=== PATIENT | female | born 1955 | race Caucasian/White ===

== ENCOUNTER 2021-05-06 16:12 | Emergency (ER) | payer MEDICARE ==
[~2021-05-06] VITALS: Ht 170.2 cm; Wt 122.8 kg
[2021-05-06] MEDS ORDERED: LEVOTHYROXINE88 MC1 PO (17:04)
[2021-05-06] MEDS ORDERED: DULOXETINE HCL20 MG PO (17:05)
[2021-05-06] MEDS ORDERED: TRAZODONE HCL50 MG PO (17:05)
[2021-05-06] MEDS ORDERED: OMEPRAZOLE20 MG PO (17:05)
[2021-05-06] MEDS ORDERED: LEXAPRO10 MG PO (17:06)
[2021-05-06] MEDS ORDERED: ASPIRIN81 MG PO (17:07)
[2021-05-06] MEDS ORDERED: ZYPREXA5 MG PO (17:07)
[2021-05-06] MEDS ORDERED: HYDROCODON-ACE1 EA10 PO (20:40)
== END 2021-05-06 20:55 | disposition home or self-care (01) ==
LOC: ED 16:12
DX: R10.13 Epigastric pain (principal); R91.1 Solitary pulmonary nodule; E03.9 Hypothyroidism, unspecified; K21.9 Gastro-esophageal reflux disease without esophagitis; Z88.2 Allergy status to sulfonamides; Z88.5 Allergy status to narcotic agent; Z79.899 Other long term (current) drug therapy; Z79.82 Long term (current) use of aspirin
CPT/HCPCS: 74177; 80053; 81001; 83690; 85025; 99284-25; A9270; Q9967